=== PATIENT | male | born 1965 ===

== ENCOUNTER 2025-07-05 08:43 | Outpatient (AMB) | payer OTHER, SELFPAY ==
--- NOTE | 2025-07-05 08:46 | A.PHYSOV ---
Vital Signs 07/05/25 08:49 Height 5 ft 7 in Weight 315 lb BMI 49.3 Intake Visit Reasons: 4M FUV Intake Note: Patient is a 60 year old male here today for a 4 month follow up office visit. Patient is here to have bilateral knee injections today. 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 Allergies levofloxacin (From Levaquin) Allergy (Unknown, Verified 07/05/25 08:52) Unknown [facility] Surgical History History of back surgery Social History Alcohol intake: current Alcohol intake frequency: does not drink Patient Tobacco Use Status: Never used Tobacco Physical Exam Vital Signs: BMI result Body Mass Index 49.3 Office Procedures AMB Knee Injection AMB Knee Injection Procedure Details: Bilateral Knee injection: The risks, benefits and complications of the left knee injection were discussed with the patient including but not limited to increased serum glucose, infection, nerve pain, fat atrophy, pigment augmentation, bleeding and pain. All questions were answered to the patient's satisfaction. Verbal consent was obtained. The patient was eager to proceed. Using aseptic technique with Betadine, ethyl chloride was then used to desensitize the skin. Using a 22-gauge needle 40 mg of Kenalog and 3 mL 2% lidocaine were injected into the knee joint. A Band-Aid was applied. Patient tolerated the procedure well without immediate complication. Postinjection instructions were given. The procedure was repeated on the right. Knee Injection - : Bilateral All charges added?: Procedure code (CPT) selection complete Office Meds Kenalog 40 mg/mL suspension for injection Performing Provider: BO Knowles Performing Location: [facility] Administered by: BO Knowles on 07/05/25 09:11 Dose Route Admin Location Dispensed Lot Number Expiration Date [facility] Secondary Teacher 40 mg intra-articular 1 mL [address]-2 [employer] Total Dispensed Waste 1 mL 0 % lidocaine (PF) 20 mg/mL (2 %) injection solution Performing Provider: BO Knowles Performing Location: [facility] Administered by: BO Knowles on 07/05/25 09:11 Dose Route Admin Location Dispensed Lot Number Expiration Date [facility] Secondary Teacher 60 mg intra-articular 3 mL [id number] Total Dispensed Waste 3 mL 0 % Assessment & Plan Assessment & Plan (1) Bilateral primary osteoarthritis of knee: Code(s): M17.0 - Bilateral primary osteoarthritis of knee Category: Medical Plan Mr. Pineda is a 60-year-old male seen in evaluation today for bilateral knee osteoarthritis. Today consented to bilateral knee corticosteroid injection. Post-injection instructions, recommend: 15 minutes 5 times daily. Continue low-impact activities such walking, biking swimming. Follow-up with our office in 3 months as needed Thank you for allowing me to participate in the care of your patient. Orders: Orders AMB Knee Injection Today M17.0 - Bilateral primary osteoarthritis of knee Coding Level of Care Code Procedure Only Diagnoses Bilateral primary osteoarthritis of knee M17.0 CPT Codes AMB Knee Injection - Hip/Bursa Injection - : Bilateral ([id number])
[2025-07-05 08:49] VITALS: BMI 49.3
--- OUTSIDE RECORDS SUMMARY | 2025-07-05 09:00 | XMS_ITS | Encounter Summary ---
Author Organization [facility] Address [address] [place] [address] Care Team Providers Care Tailor Helper Name Role Phone Unknown Primary Care Provider [phone] Encounter Details Date Type Department Care Team (Late st Contact Info) Description 12/31/2024 Scanned Document [address] [place] [id number] Provider, Generic Social History Tobacco Use Types Packs/Day Years Used Date Smoking Tobacco: Never Assessed Sex and Gender Information Value Date Recorded Sex Assigned at Not on file Legal Sex Male 9:42 AM EDT Gender Identity Not on file Sexual Orientation Not on file documented as of this encounter Plan of Treatment Not on file documented as of this encounter Visit Diagnoses Not on filedocumented in this encounter Care Teams Tailor Helper Relationship Specialty Start Date End Date Unknown Unknow Provider Address PCP - General 06/11/22 documented as of this encounter
--- OUTSIDE RECORDS SUMMARY | 2025-07-05 09:00 | XMS_ITS | Data Portability ---
Author Organization [facility], Main Office Address [address] [facility] [address] [place] [address] Care Team Providers Care Transportation Economics Teacher Name Role Phone JOLIE MARY Urologist SURYA LUGO Primary Care Provider Assessment Encounter Date Assessment Date Assessment LastModified by Organization Details LastModified Time 01/20/2024 01/20/2024 Discussed with patient the signs/symptom s warranted for a return to office visit and/or an ER visit. Patient understood and agreed with the plan. Not available 01/20/2024 13:32:36 Plan of Treatment Reminders Order Date Submit Date Provider Last Modified By Organization Details Last Modified Time Details Appointments PE EST 2024 08:45A M SURYA LUGO MD Not available Not available Not available Lab None recorded. [facility] 2023 024 Obinna Singh MD, [address], [address], 01/24/2024 10:21:28 Procedures None recorded. Surgeries None recorded. Imaging None recorded. Medication Orders cetirizin e 10 mg tablet 2024 025 [facility] #[id number], [address], [place], [id number], 05/01/2025 11:42:07 Medrol (Mamadou) 4 mg tablets in a dose pack 2024 025 [facility] #[id number], [address], [place], [id number], 05/01/2025 11:42:45 allopurin ol 300 mg tablet 2023 024 [facility] #66369, [address], [place], [id number], 08/09/2024 09:31:09 gabapenti n 100 mg capsule 2023 024 [facility] #88290, [address], [place], [id number], 08/09/2024 09:28:25 hydrochlo rothiazid e 25 mg tablet [address] [facility]30965, [address], [place], [id number], 12/15/2023 15:17:46 amlodipin e 10 mg tablet 2023 024 [facility]36486, [address], [place], [id number], 12/15/2023 15:17:45 allopurin ol 300 mg tablet 2023 024 [facility]02238, [address], [place], [id number], 12/15/2023 15:17:02 Patient TargetsNo targets recorded. Patient Instructions Encounter Date Encounter Id Patient Instructions Last Modified By Organization Details Last Modified Time 12/15/2023 [id number] Prediabetes: Instruciones de cuidado - [Prediabetes: Care Instructions] [facility] available 12/15/2023 15:27:40 Aprenda sobre el recuento de carbohidratos y comer afuera cuando tiene diabetes - [Learning About Carbohydrate (Carb) Counting and Eating Out When You Have Diabetes] [facility] Not available 12/15/2023 15:29:11 C MO comer alimentos saludables: instrucciones de cuidado - [eating healthy foods: care instructions] [facility] Not available 12/15/2023 15:29:11 alimentaci n saludable para el coraz n: instrucciones de cuidado - [heart-healthy diet: care instructions] jthabet Not available 12/15/2023 15:29:11 presi n arterial lin: instrucciones de cuidado - [high blood pressure: care instructions] jthabet Not available 12/15/2023 15:18:21 dieta dash: instrucciones de cuidado - [dash diet: care instructions] jabet Not available 12/15/2023 15:18:21 dieta baja en sodio (2,000 miligramos): instrucciones de cuidado - [low sodium diet (2,000 milligram): care instructions] jt Not available 12/15/2023 15:18:22 aprenda sobre la dieta para prevenir los c lculos renales - [learning about diet for kidney stone prevention] jt Not available 12/15/2023 15:18:40 To call or retur n for worsening or concerns t Not available 12/15/2023 15:17:50 01/20/2024 [id number] ci robin: instrucciones de cuidado - [sciatica: care instructions] Not available 01/20/2024 13:37:42 sciatica: exercises Not available 01/20/2024 13:37:42 sciatica education Not available 01/20/2024 13:37:42 05/01/2024 [id number] Starting a Weight-Loss Plan: Care Instructions abet Not available 05/01/2024 15:56:43 Prostate Cancer Screening jthabet Not available 05/01/2024 15:56:42 low back pain: exercises jthabet Not available 05/01/2024 15:56:42 back care and preventing injuries: care instructions jabet Not available 05/01/2024 15:56:43 Colon Cancer Screening VMA jthabet Not available 05/01/2024 16:00:06 controlling your asthma: care instructions jthabet Not available 05/01/2024 15:56:42 control del asma : instrucciones de cuidado - [controlling your asthma: care instructions] jthabet Not available 05/01/2024 15:56:42 ataque de asma: instrucciones de cuidado - [asthma attack: care instructions] jthabet Not available 05/01/2024 15:56:42 To call or retur n for worsening or concerns jthabet Not available 05/01/2024 12:40:20 08/09/2024 [id number] high blood pressure: care instructions jthabet Not available 08/09/2024 09:31:22 low sodium diet (2,000 milligram): care instructions jthabet Not available 08/09/2024 09:31:22 dash diet: care instructions jthabet Not available 08/09/2024 09:31:22 kidney stone: care instructions jthabet Not available 08/09/2024 09:33:50 To call or retur n for worsening or concerns jthabet Not available 08/09/2024 10:48:36 05/01/2025 [id number] urticaria: instrucciones de cuidado - [hives: care instructions] acennerazzo Not available 05/01/2025 11:42:03 Reason for Referral Physical Medicine And Rehabi litation Referral for Sciatica bilateral sciatica Referring Physician: Xiomara Pascual, Family Medicine, Encounter Date: 01/20/2024 Results Created Date Observation Date Name Description Value Unit Range Abnormal Flag Note LastModifiedBy Organization Detail LastModifiedTime 05/31/20 24 05/31/2024 CBC WITH DIFFE RENTI AL/PL ATELE T WBC 8.3 x10e3 /uL 3.4-10 .8 normal Not Available [facility] [place] [facility] [address] [facility], [place], [address], 06/08/2024 11:59:44 05/31/20 24 05/31/2024 CBC WITH DIFFE RENTI AL/PL ATELE T RBC 4.79 x10e6 /uL 4.14-5 .80 normal Not Available [facility] ([facility] [address] [place], [address], 06/08/2024 11:59:44 05/31/2005/31/2024 CBC WITH DIFFE RENTI AL/PL ATELE T hemoglobin 14.6 g/dL 13.0-1 7.7 normal Not Available [facility] ([facility] [place] [facility] [address] [place], [address], 06/08/2024 11:59:44 05/31/2005/31/2024 CBC WITH DIFFE RENTI AL/PL ATELE T hematocrit 43.4 % 37.5-5 1.0 normal Not Available [facility] ([facility] [place] [facility] [address] [place], [address], 06/08/2024 11:59:44 05/31/2005/31/2024 CBC WITH DIFFE RENTI AL/PL ATELE T MCV 91 fL 79-97 normal Not Available [facility] ([facility] [place] [facility] [address] [place], [address], 06/08/2024 11:59:44 05/31/2005/31/2024 CBC WITH DIFFE RENTI AL/PL ATELE T MCH 30.5 pg 26.6-3 3.0 normal Not Available [facility] ([facility] [place] [facility] [address] [place], [address], 06/08/2024 11:59:44 05/31/2005/31/2024 CBC WITH DIFFE RENTI AL/PL ATELE T MCHC 33.6 g/dL 31.5-3 5.7 normal Not Available [facility] ([facility] [place] [facility] [address] [place], [address], 06/08/2024 11:59:44 05/31/2005/31/2024 CBC WITH DIFFE RENTI AL/PL ATELE T RDW 13.1 % 11.6-1 5.4 Not Available [facility] ([facility] [place] [place] [facility] [address] [facility], [place], [address], 06/08/2024 11:59:44 05/31/20 24 05/31/2024 CBC WITH DIFFE RENTI AL/PL ATELE T platelets 298 x10e3 /uL 150-45 0 normal Not Available [facility] ([facility] [place] [facility] [address] [facility], [place], [address], 06/08/2024 11:59:44 05/31/2005/31/2024 CBC WITH DIFFE RENTI AL/PL ATELE T neutrophils 69 % not estab. normal Not Available [facility] ([facility] [place] [place] [facility] [address] [facility], [place], [address], 06/08/2024 11:59:44 05/31/2005/31/2024 CBC WITH DIFFE RENTI AL/PL ATELE T lymphs 20 % not estab. normal Not Available [facility] ([facility] [place] [place] [facility] [address] [facility], [place], [address], 06/08/2024 11:59:44 05/31/20 24 05/31/2024 CBC WITH DIFFE RENTI AL/PL ATELE T monocytes 6 % not estab. normal Not Available [facility] ([facility] [place] [place] [facility] [address] [facility], [place], [address], 06/08/2024 11:59:44 05/31/2005/31/2024 CBC WITH DIFFE RENTI AL/PL ATELE T eos 3 % not estab. normal Not Available [facility] ([facility] [place] [place] [facility] [address] [facility], [place], [address], 06/08/2024 11:59:44 05/31/20 24 05/31/2024 CBC WITH DIFFE RENTI AL/PL ATELE T basos 1 % not estab. normal Not Available [facility] ([facility] [place] [place] [facility] [address] [facility], [place], [address], 06/08/2024 11:59:44 05/31/2005/31/2024 CBC WITH DIFFE RENTI AL/PL ATELE T immature cells TETRYL NITRATOR OPERATOR Not Available [facility] ([facility] [place] [place] [facility] [address] [facility], [place], [address], 06/08/2024 11:59:44 05/31/2005/31/2024 CBC WITH DIFFE RENTI AL/PL ATELE T neutrophils (absolute) 5.9 x10e3 /uL 1.4-7. 0 normal Not Available [facility] ([facility] [place] [place] [facility] [address] [facility], [place], [address], 06/08/2024 11:59:44 05/31/20 24 05/31/2024 CBC WITH DIFFE RENTI AL/PL ATELE T lymphs (absolute) 1.7 x10e3 /uL 0.7-3. 1 normal Not Available [facility] ([facility] [place] [place] [facility] [address] [place], [address], 06/08/2024 11:59:44 05/31/20 24 05/31/2024 CBC WITH DIFFE RENTI AL/PL ATELE T monocytes(ab solute) 0.5 x10e3 /uL 0.1-0. 9 normal Not Available [facility] ([facility] [place] [place] [facility] [address] [facility], [place], [address], 06/08/2024 11:59:44 05/31/20 24 05/31/2024 CBC WITH DIFFE RENTI AL/PL ATELE T eos (absolute) 0.2 x10e3 /uL 0.0-0. 4 normal Not Available [facility] ([facility] [place] [place] [facility] [address] [facility], [place], [address], 06/08/2024 11:59:44 05/31/20 24 05/31/2024 CBC WITH DIFFE RENTI AL/PL ATELE T baso (absolute) 0.1 x10e3 /uL 0.0-0. 2 normal Not Available [facility] ([facility] [place] [place] [facility] [address] [facility], [place], [address], 06/08/2024 11:59:44 05/31/20 24 05/31/2024 CBC WITH DIFFE RENTI AL/PL ATELE T immature granulocytes 1 % not estab. Not Available [facility] ([facility] [place] [place] [facility] [address] [facility], [place], [address], 06/08/2024 11:59:44 05/31/2005/31/2024 CBC WITH DIFFE RENTI AL/PL ATELE T immature grans (abs) 0.1 x10e3 /uL 0.0-0. 1 Not Available [facility] ([facility] [place] [place] [facility] [address] [facility], [place], [address], 06/08/2024 11:59:44 05/31/20 24 05/31/2024 CBC WITH DIFFE RENTI AL/PL ATELE T NRBC TETRYL NITRATOR OPERATOR Not Available [facility] ([facility] [place] [place] [facility] [address] [facility], [place], [address], 06/08/2024 11:59:44 05/31/20 24 05/31/2024 CBC WITH DIFFE RENTI AL/PL ATELE T hematology comments: TETRYL NITRATOR OPERATOR Not Available [facility] ([facility] [place] [place] [facility] [address] [facility], [place], [address], 06/08/2024 11:59:44 05/31/20 24 05/31/2024 COMP. METAB OLIC PANEL (14) glucose 95 mg/dL 70-99 normal Not Available [facility] ([facility] [place] [facility] [address] [place], [address], 06/08/2024 11:59:45 05/31/20 24 05/31/2024 COMP. METAB OLIC PANEL (14) BUN 18 mg/dL 6-24 normal Not Available [facility] ([facility] [place] [place] [facility] [address] [facility], [place], [address], 06/08/2024 11:59:45 05/31/20 24 05/31/2024 COMP. METAB OLIC PANEL (14) creatinine 1.16 mg/dL 0.76-1 .27 normal Not Available [facility] ([facility] [place] [facility] [address] [facility], [place], [address], 06/08/2024 11:59:45 05/31/20 24 05/31/2024 COMP. METAB OLIC PANEL (14) eGFR 73 mL/mi n/1.7 3 >59 normal Not Available [facility] ([facility] [place] [place] [facility] [address] [facility], [place], [address], 06/08/2024 11:59:45 05/31/20 24 05/31/2024 COMP. METAB OLIC PANEL (14) BUN/creatini ne ratio 16 9-20 normal Not Available [facility] ([facility] [place] [place] [facility] [address] [facility], [place], [address], 06/08/2024 11:59:45 05/31/20 24 05/31/2024 COMP. METAB OLIC PANEL (14) sodium 143 mmol/ L 134-14 4 normal Not Available [facility] ([facility] [place] [place] [facility] [address] [place] [place], [address], 06/08/2024 11:59:45 05/31/20 24 05/31/2024 COMP. METAB OLIC PANEL (14) potassium 4.5 mmol/ L 3.5-5. 2 normal Not Available [facility] ([facility] [place] [place] [facility] [address] [place] [place], [address], 06/08/2024 11:59:45 05/31/20 24 05/31/2024 COMP. METAB OLIC PANEL (14) chloride 104 mmol/ L 96-106 normal Not Available [facility] ([facility] [place] [place] [facility] [address] [place] [place], [address], 06/08/2024 11:59:45 05/31/20 24 05/31/2024 COMP. METAB OLIC PANEL (14) carbon dioxide, total 25 mmol/ L 20-29 normal Not Available [facility] ([facility] [place] [place] [facility] [address] [facility] [place], [address], 06/08/2024 11:59:45 05/31/20 24 05/31/2024 COMP. METAB OLIC PANEL (14) calcium 9.6 mg/dL 8.7-10 .2 normal Not Available [facility] ([facility] [place] [facility] [address] [place], [address], 06/08/2024 11:59:45 05/31/2005/31/2024 COMP. METAB OLIC PANEL (14) protein, total 6.9 g/dL 6.0-8. 5 normal Not Available [facility] ([facility] [place] [place] [facility] [address] [place] [place], [address], 06/08/2024 11:59:45 05/31/20 24 05/31/2024 COMP. METAB OLIC PANEL (14) albumin 4.0 g/dL 3.8-4. 9 normal Not Available [facility] ([facility] [place] [place] [facility] [address] [place] [place], [address], 06/08/2024 11:59:45 05/31/20 24 05/31/2024 COMP. METAB OLIC PANEL (14) globulin, total 2.9 g/dL 1.5-4. 5 Not Available [facility] ([facility] [place] [place] [facility] [address] [place] [place], [address], 06/08/2024 11:59:45 05/31/2005/31/2024 COMP. METAB OLIC PANEL (14) bilirubin, total 0.7 mg/dL 0.0-1. 2 normal Not Available [facility] ([facility] [place] [place] [facility] [address] [place], [address], 06/08/2024 11:59:45 05/31/20 24 05/31/2024 COMP. METAB OLIC PANEL (14) alkaline phosphatase 69 IU/L 44-121 normal Not Available [facility] ([facility] [place] [place] [facility] [address] [place] [place], [address], 06/08/2024 11:59:45 05/31/20 24 05/31/2024 COMP. METAB OLIC PANEL (14) AST (SGOT) 19 IU/L 0-40 normal Not Available [facility] ([facility] [place] [place] [facility] [address] [place], [address], 06/08/2024 11:59:45 05/31/2005/31/2024 COMP. METAB OLIC PANEL (14) ALT (SGPT) 27 IU/L 0-44 normal Not Available [facility] ([facility] [place] [facility] [address] [place], [address], 06/08/2024 11:59:45 05/31/20 24 05/31/2024 LIPID PANEL cholesterol, total 186 mg/dL 100-19 9 normal Not Available [facility] ([facility] [place] [place] [facility] [address] [place], [address], 06/08/2024 11:59:45 05/31/20 24 05/31/2024 LIPID PANEL triglyceride s 100 mg/dL 0-149 normal Not Available [facility] ([facility] [place] [facility] [address] [place], [address], 06/08/2024 11:59:45 05/31/20 24 05/31/2024 LIPID PANEL HDL cholesterol 46 mg/dL >39 normal Not Available [facility] ([facility] [place] [facility] [address] [place], [address], 06/08/2024 11:59:45 05/31/20 24 05/31/2024 LIPID PANEL VLDL cholesterol marianela 18 mg/dL 5-40 Not Available [facility] ([facility] [place] [facility]) [address] [place], [address], 06/08/2024 11:59:45 05/31/2005/31/2024 LIPID PANEL LDL chol calc ([facility]) 122 mg/dL 0-99 above high normal Not Available [facility] ([facility] [place] [place] [facility] [address] [facility], [place], [address], 06/08/2024 11:59:45 05/31/2005/31/2024 LIPID PANEL LDL calc comment: TETRYL NITRATOR OPERATOR Not Available [facility] ([facility] [place] [place] [facility] [address] [facility], [place], [address], 06/08/2024 11:59:45 05/31/2006/08/2024 PROST ATE SPECI FIC ANTIG EN prostate specific antigen 2.367 NG/mL This PSA resul t was deter mined using the [employer] an [employer] lumin ometr ic immun oassa y and value s obtai adrienne canno t be evalu ated inter giang eably with diffe rent assay metho ds or kits. This PSA resul t alone canno t be inter prete d as absol qagan tayagungin evide nce of the prese nce or absen ce of disea se. Refer ence Range : >=40y : 97% of contr ols are <4.0. PSA level s have been repor rudy to corre late with prost ate size. Value s >4.0 are commo n in patie nts with prost atic hyper plasi a. Not Available [facility] [address] [facility], [place], [address], 06/08/2024 11:59:46 05/31/20 24 06/01/2024 HEMOG LOBIN A1C hemoglobin A1C 6.2 % 4.8-5. 6 above high normal Predi abete s: 5.7 - 6.4 Diabe leigh ann: >6.4 Glyce adalid contr ol for adult s with diabe leigh ann: <7.0 Not Available [facility] ([facility] [place] [facility] [address] [facility], [place], [address], 06/08/2024 11:59:47 09/17/19 25 09/17/2024 STONE DEBORAH SIS component(s) See below 20% Calci um oxala te monoh ydrat e (Whew ellit e) 40% Uric acid anhyd sean 40% Uric acid dihyd rate Not Available [address], [address], 09/20/2024 14:26:20 09/17/19 25 09/17/2024 STONE DEBORAH SIS stone weight 0.1977 g This test was devel oped and its perfo rmanc e monica cteri stics deter mined by [facility] in a phani r consi stent with KAM russo ts. This test has not been clear ed or appro stella by the U.S. Food and Drug Admin istra tion. Test perfo rmed at [facility] , [address], [place] [address] [phone] Catherine spence MD, PhD - Medic al Direc tor Not Available [address], [address], 09/20/2024 14:26:20 09/17/19 25 09/17/2024 STONE DEBORAH SIS note See Report [facility], [address], [place], [place] [address] Not Available [address], [address], 09/20/2024 14:26:20 09/17/19 25 09/17/2024 xr urogr am retro grade See Note [facility] , a member of [employer] Name: SHELDON ABRAHAM Date of : 1964 Reason for Exam: pain Exam Date: 2024 [id number] EST Report Status : Final Orderi ng Provid er: BRIEN ARZATE PCP: MARCELINO LEE EXAMIN ATION: Imagin g assist ance provid ed during a proced ure CLINIC AL INFORM ATION: Pain COMPAR PEACE: None. TECHNI QUE: UROLOG IC-Silva ging assist ance was provid ed during a urolog ic proced ure Total dose area produc t: 9304 mGycm2 Fluoro scopy time: 51.5 second s FINDIN GS: Images are not labele d left or right. There are densit ies projec ting in the midabd omen which could be calcul i. A wire is demons trated superi mposin g over the region of the upper pole collec ting system . A fairly large bore cannul a is advanc ed into the expect ed region of the proxim al ureter . Subseq uently a device is manipu lated into variou s portio ns of the intrar enal collec ting system . Contra st is introd uced. Subseq uently a nephro ureter al stent was deploy ed. IMPRES MICHELA: Imagin g assist ance provid ed during a urolog ic proced ure. ------ -- FINAL REPORT ------ -- Dictat ed By: Davonte Ng Dictat ed Date: 2024 12:13 ET Assign ed Physic luis antonio: Davonte Ng Review ed and Electr onical ly Signed By: Davonte Ng Signed Date: 2024 12:15 ET Workst ation ID: [id number] Transc ribed By: Self Edit Transc ribed Date: 2024 12:[address], [address], 09/18/2024 06:55:31 Result Notes None recorded. Problems Name Problem SNOMED Code Status Onset Date Resolution Date Notes Provider Name and Address Organization Details Recorded Time Uric acid renal calculus 066563474 Active on allopurin ol for this Marley De Santiagoashleyandressa stephany smiley [facility] 3 09:35:18 [facility] emia 32461874 Active JENY Brown [facility] 3 15:54:11 Essential hypertens ion 52479770 Active 2021 JENY Brown [facility] 2 11:12:10 Generaliz ed anxiety disorder 63413963 Active 2021 [facility] 11:43:51 Acute pharyngit is 832243455 Active 2021 Mariaelena Lee PASLEIDY [address] [address], [place], [address], [facility] 2 11:11:15 Influenza A virus present 380218239832 Active 2021 BIJAL San [address] [address], [place], [address], [facility] 2 11:48:04 Cough 93840920 Active 2021 BIJAL San [address] [address], [place], [address], [facility] 2 11:49:25 Body mass index 40+ - severely obese 427078590 Active 2022 BIJAL San [address] [address], [place], [address], [facility] 3 08:48:16 Body mass index 40+ - severely obese 329052122 Active 2022 BIJAL San [address] [address], [place], [address], [facility] 3 08:48:25 Low back pain 596284932 Active 2022 Mariaelena Lee PASLEIDY [address] [address], [place], [address], [facility] 3 09:00:06 Moderate persisten t asthma 255960168 Active 2022 Mariaelena Lee PASLEIDY [address] [address], [place], [address], [facility] 3 10:47:31 Hyperlipi demia 24253672 Active 2022 Mariaelena Lee, [facility] [address] [facility] [address], [place], [address], [facility] 3 08:58:00 Nocturia 230529326 Active 2022 Mariaelena Lee, [facility] [address] [facility] [address], [place], [address], [facility] 3 09:07:22 Exacerbat ion of moderate persisten t asthma 786225160 Active 2023 Mariaelena Lee, [facility] [address] [facility] [address], [place], [address], [facility] 4 10:36:03 Prediabet es 470613959 Active 2023 Mariaelena Lee, [facility] [address] [facility] [address], [place], [address], [facility] 4 15:27:23 Problem Notes None recorded. Procedures Surgical History Date Name Laterality Status Provider Name and Address Organization Details Recorded Time 5 injection of bilateral knee joints completed Eve Quinonez [facility] 03/19/2025 10:53:51 4 injection of bilateral knee joints completed Eve Quinonez [facility] 06/28/2024 10:58:51 4 Back Surgery completed Rosalinda moreno MA [facility] 12/15/2023 15:02:55 Kidney endoscopy & treatment completed Niki Conrad MA [facility] 05/17/2022 11:17:46 Imaging Results None recorded. Procedure Notes None recorded. Medical Equipment None Reported. Allergies Allergen ID Allergen Name Allergen Category Reaction Reaction Severity Criticality Documentation Date Start Date Code Code System Note Provider Name and Address Organization Details Recorded Time 56945 Levaquin medicatio n anaphylax is severe Not available 05/17/2022 55186 2 RxNorm Niki Conrad MA [facility] 11:06:53 Medications Name Sig Start Date Stop Date Status Note LastModified by Organization Details LastModified Time cyclobenz aprine 10 mg tablet TAKE 1 TABLET BY MOUTH ONCE DAILY AT BEDTIME FOR MUSCLE SPASMS. DO NOT DRINK ALCOHOL OR DRIVE WHILE TAKING THIS MEDICATI ON 01/19 completed Not Available Not Available Not Available amoxicill in 500 mg capsule TAKE 1 CAPSULE BY MOUTH THREE TIMES DAILY 05/01 completed Not Available Not Available Not Available promethaz ine-DM 6.25 mg-15 mg/5 mL oral syrup TAKE 5 ML BY MOUTH EVERY 4 HOURS FOR 7 DAYS DIRECTED 09/22 completed Not Available Not Available Not Available prednison e 10 mg tablet Take 5 tabs, 3 days, 4 tabs x 3 days, 3 tabs x 3 days, 2 tabs x 2 days and 1 tab x 2 days 01/19 completed Not Available Not Available Not Available cetirizin e 10 mg tablet TAKE 1 TABLET BY MOUTH DAILY FOR HIVES active Not Available Not Available No t Available azithromy akil 250 mg tablet TAKE 2 TABLETS BY MOUTH DAILY FOR 1 DAY THEN TAKE 1 TABLET BY MOUTH DAILY FOR 4 DAYS active Not Available Not Available No t Available ibuprofen 800 mg tablet TAKE 1 TABLET BY MOUTH THREE TIMES DAILY NEEDED FOR BACK PAIN active Not Available Not Available No t Available Lidocaine Viscous 2 % mucosal solution active Not Available Not Available Not Available tizanidin e 4 mg tablet TAKE 1 TABLET BY MOUTH THREE TIMES DAILY 08/09 completed Not Available Not Available Not Available benzonata te 200 mg capsule 02/16 completed Not Available Not Available Not Available hydrocodo ne 5 mg-acetam inophen 325 mg tablet TAKE 1 TABLET BY MOUTH THREE TIMES DAILY FOR 5 DAYS NEEDED 08/09 completed Not Available Not Available Not Available meloxicam 15 mg tablet TAKE 1 TABLET BY MOUTH EVERY DAY NEEDED THROAT PAIN 2024 active Not Available Not Available Not Avai lable phenazopy ridine 200 mg tablet TAKE 1 TABLET BY MOUTH EVERY 8 HOURS NEEDED active Not Available Not Available No t Available prednison e 20 mg tablet TAKE 3 TABLETS BY MOUTH EVERY DAY IN THE MORNING FOR 5 DAYS 12/14 completed Not Available Not Available Not Available amlodipin e 5 mg tablet TAKE 1 TABLET BY MOUTH EVERY DAY 03/18 completed Not Available Not Available Not Available sulfameth oxazole 800 mg-trimet hoprim 160 mg tablet TAKE 1 TABLET BY MOUTH TWICE DAILY 05/01 completed Not Available Not Available Not Available oxycodone -acetamin ophen 5 mg-325 mg tablet TAKE 1 TABLET BY MOUTH EVERY 6 HOURS NEEDED 05/01 completed Not Available Not Available Not Available tamsulosi n 0.4 mg capsule TAKE 1 CAPSULE BY MOUTH EVERY 24 HOURS 05/17 completed Not Available Not Available Not Available amlodipin e 10 mg tablet TAKE 1 TABLET BY MOUTH EVERY DAY active Not Available Not Available No t Available erythromy akil 5 mg/gram (0.5 %) eye ointment APPLY TO RIGHT LOWER LID AND LEFT UPPER LID FOUR TIMES A DAY FOR 7 DAYS 05/17 completed Not Available Not Available Not Available oseltamiv ir 75 mg capsule Take 1 capsule twice a day by oral route as directed for 5 days. 2021 active Not Available Not Available Not Avai lable dexametha sone 4 mg tablet 08/09 completed Not Available Not Available Not Available omeprazol e 20 mg capsule,d elayed release TAKE 1 CAPSULE BY MOUTH EVERY DAY IN THE MORNING FOR GERD 05/01 completed Not Available Not Available Not Available lisinopri l 20 mg-hydroc hlorothia zide 25 mg tablet TAKE 1 TABLET BY MOUTH EVERY DAY 05/17 completed Not Available Not Available Not Available allopurin ol 300 mg tablet TAKE 1 TABLET BY MOUTH EVERY DAY DIRECTED FOR KIDNEY STONES active Not Available Not Available No t Available hydrochlo rothiazid e 25 mg tablet TAKE 1 TABLET BY MOUTH EVERY DAY active Not Available Not Available No t Available gabapenti n 100 mg capsule TAKE 1 CAPSULE BY MOUTH TWICE DAILY NEEDED 08/09 completed Not Available Not Available Not Available ibuprofen 600 mg tablet 05/17 completed Not Available Not Available Not Available methylpre dnisolone 4 mg tablets in a dose pack FOLLOW PACKAGE DIRECTIO NS active Not Available Not Available No t Available albuterol sulfate HFA 90 mcg/actua tion aerosol inhaler INHALE 2 PUFFS BY MOUTH EVERY 4 HOURS NEEDED active Not Available Not Available No t Available lisinopri l 40 mg tablet TAKE 1 TABLET BY MOUTH EVERY DAY active Not Available Not Available No t Available ondansetr on 4 mg disintegr ating tablet TAKE 1 TABLET BY MOUTH EVERY 8 HOURS NEEDED FOR NAUSEA AND VOMITTIN G 05/17 completed Not Available Not Available Not Available fluticaso ne propionat e 50 mcg/actua tion nasal spray,frankie pension SPRAY 1 SPRAY INTO EACH NOSTRIL EVERY DAY 02/16 completed Not Available Not Available Not Available doxycycli ne hyclate 100 mg tablet TAKE 1 TABLET BY MOUTH TWICE DAILY FOR 7 DAYS 07/12 completed Not Available Not Available Not Available fluticaso ne propionat e 110 mcg/actua tion HFA aerosol inhaler Inhale 2 puffs twice a day by inhalati on route for 30 days. 12/29 completed has not started too expensiv e Not Available Not Available Not Available amoxicill in 875 mg-potass ium clavulana te 125 mg tablet TAKE 1 TABLET BY MOUTH TWICE DAILY FOR 5 DAYS active Not Available Not Available No t Available cyclobenz aprine 5 mg tablet TAKE 1 TABLET BY MOUTH THREE TIMES DAILY NEEDED FOR MUSCLE SPASM 09/22 completed Not Available Not Available Not Available budesonid e-formote rol HFA 160 mcg-4.5 mcg/actua tion aerosol inhaler INHALE 2 PUFFS BY MOUTH TWICE DAILY DIRECTED active Not Available Not Available No t Available ProChambe r 02/16 completed Not Available Not Available Not Available COVID-19 test specimen collectio n TEST DIRECTED TODAY 05/17 completed Not Available Not Available Not Available Wegovy 0.25 mg/0.5 mL subcutane ous pen injector 02/16 completed Not Available Not Available Not Available Wegovy 0.5 mg/0.5 mL subcutane ous pen injector 02/16 completed Not Available Not Available Not Available Vitals Date Recorded Systolic And Diastolic Provider Name and Address Organization Details Last Updated DateTime 12/15/2023 124/80 mm[Hg] Mariaelena Lee, BIJAL [address] [facility] [address], [address], [facility] 12/15/2023 15:30:30 Date Recorded Body height Body mass index (BMI) Body weight Oxygen saturation Oxygen saturation in Arterial blood by Pulse oximetry Heart rate Body temperature Systolic And Diastolic Provider Name and Address Organization Details Last Updated DateTime 4 170.18 cm 51.4 kg/m2 574186. 3 g 96 % 96 % 98 /min 98 [degF] 139/79 mm[Hg] Rosalinda aviles [facility] 4 14:57:54 Date Recorded Body height Body mass index (BMI) Body weight Heart rate Oxygen saturation Oxygen saturation in Arterial blood by Pulse oximetry Body temperature Systolic And Diastolic Provider Name and Address Organization Details Last Updated DateTime 4 170.18 cm 51.4 kg/m2 526133. 3 g 100 /min 97 % 97 % 97.7 [degF] 123/76 mm[Hg] Gabbi [facility] 4 13:26:45 Date Recorded Body height Body mass index (BMI) Body weight Heart rate Oxygen saturation Oxygen saturation in Arterial blood by Pulse oximetry Body temperature Systolic And Diastolic Provider Name and Address Organization Details Last Updated DateTime 4 170.18 cm 49 kg/m2 182860. 41 g 97 /min 94 % 94 % 97.8 [degF] 160/98 mm[Hg] Adalgisa Isaac [facility] 4 15:37:30 Date Recorded Body height Body mass index (BMI) Body weight Heart rate Oxygen saturation Oxygen saturation in Arterial blood by Pulse oximetry Heart rate Body temperature Systolic And Diastolic Provider Name and Address Organization Details Last Updated DateTime 5 170.18 cm 48.6 kg/m2 794998. 63 g 124 /min 97 % 97 % 112 /min 97.9 [degF] 116/70 mm[Hg] Gabbi Boykin [facility] 5 11:20:59 Date Recorded Body height Body mass index (BMI) Body weight Heart rate Oxygen saturation Oxygen saturation in Arterial blood by Pulse oximetry Body temperature Systolic And Diastolic Provider Name and Address Organization Details Last Updated DateTime 4 170.18 cm 50.1 kg/m2 948977. 56 g 80 /min 97 % 97 % 97.6 [degF] 133/84 mm[Hg] Gabbi Connolly MA [facility] 4 08:53:37 Social History Question Answer Notes LastModified by Organizat ion Details LastModified Time Tobacco Smoking Status Former Smoker quit at age 37 JENY Brown, [facility] 05/17/2022 11:15:32 Is Blood Transfusion Acceptable In An Emergency? Yes [email or web address] Information not available 05/17/2022 What Is Your Level Of Caffeine Consumption? Moderate 3-4 Cups Of Coffee Daily Information not available 12/15/2023 How Much Tobacco Do You Chew? None [email or web address] Information not available 05/17/2022 What Type Of Diet Are You Following? REGULAR [email or web address] Information not available 05/17/2022 Which Illicit Or Recreational Drugs Have You Used? None [email or web address] Information not available 05/17/2022 When Did You Quit Smoking? 16+yearssin mary tovar Information not available 12/15/2023 Do You Take Precautions To Prevent Distracted Driving? Yes [email or web address] Information not available 05/17/2022 How Often Do You Need To Have Someone Help You When You Read Instructions, Pamphlets, Or Other Written Material From Your Doctor Or Pharmacy? Always [email or web address] Information not available 05/17/2022 Have You Served In The ? No [email or web address] Information not available 05/17/2022 How Many Children Do You Have? 1 [email or web address] Information not available 12/15/2023 What Is Your Current Pack Years? 10packyears Information not available 07/29/2022 Do You Use Your Seat Belt Or Car Seat Routinely? Yes [email or web address] Information not available 05/17/2022 Are You Sexually Active? Yes Rowena Information not available 12/15/2023 Do You Have Smoke And Carbon Monoxide Detectors In Your Home? Yes [email or web address] Information not available 05/17/2022 At What Age Did You Start Smoking Tobacco? 20 [email or web address] Information not available 05/17/2022 Are You Passively Exposed To Smoke? No [email or web address] Information not available 05/17/2022 How Much Tobacco Do You Smoke? No [email or web address] Information not available 05/17/2022 Do You Use Sunscreen Routinely? No [email or web address] Information not available 05/17/2022 How Many Years Have You Smoked Tobacco? 16 Information not available 12/15/2023 Sex: Unknown Functional Status Question Answer Note LastModified by Organizat ion Details LastModified Time Do you use any illicit or recreational drugs? No Information not available 07/29/2022 Do you or have you ever used any other forms of tobacco or nicotine? No Information not available 07/29/2022 What is your level of alcohol consumption? Occasional [email or web address] Information not available 05/17/2022 Do you or have you ever used smokeless tobacco? Never used smokeless tobacco [email or web address] Information not available 05/17/2022 Are you currently employed? Yes [email or web address] Information not available 05/17/2022 Are you able to walk independently without assistance or assistive devices? YESWOREST Information not available 07/29/2022 Are you able to care for yourself independently? 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 None [email or web address] Information not available 05/17/2022 Mental Status None recorded. Family History Relationship Description Onset Age of this Age Resolved Age Notes LastModified by Organization Details LastModified Time Mother Heart disease [email or web address] Not available 05/17 11:13:52 Mother Cerebrovascu lar accident [email or web address] Not available 11:14:06 Father Harmful pattern of use of alcohol [email or web address] Not available 05/17 11:14:39 Notes:NO Colon or breast can cer Medical History Condition Response Hospitalizations Y Allergies Y Immunizations Vaccine Type Date Status Note Provider Name and Address Organization Details Recorded Time Tdap completed Niki Conrad MA [facility] 06/21/2022 15:55:48 COVID-19, mRNA, LNP-S, PF, 100 mcg/0.5mL dose or 50 mcg/0.25mL dose 1 completed JENY Brown [facility] 06/21/2022 15:55:48 COVID-19, mRNA, LNP-S, PF, 100 mcg/0.5mL dose or 50 mcg/0.25mL dose 1 completed JENY Brown [facility] 06/21/2022 15:55:48 Influenza, split virus, quadrivalent , PF 2 cancelled patient objection Brandi Stacynehemiah smiley [facility] 05/19/2022 11:43:00 Past Encounters Encounter ID Performer Location Encounter Start Date Encounter Closed Date Diagnosis/Indication Diagnosis SNOMED-CT Code Diagnosis ICD10 Code Diagnosis IMO Codes Diagnosis Note [id number] Selina moseley MD Main Office [address] [place] [address] 05/17/2022 10:33:10 05/17/2022 12:15:00 Adult health examination 882420862 Z00.00 Pt had new pt visit and physical, needs follow up on several concerns. . Social and family history reviewed. Immunizati ons reviewed, advised annual flu shot, covid vaccine and shingles vaccine. He is not up to date on dental and eye providers, colon screening will need to be scheduled, Reviewed diet and exercise. He will do labs, take meds and return for followup and to complete the physical Needs infl uenza immunization 969759436 Z23 Fatigue 39148715 R53.83 Hyperlipidemia 14429654 E78.5 labs and will review at next visit Hyperglycemia 76238540 R 73.9 do labs and needs followup to review Low back pain 144245584 M54.59 pt pain concern is back pain, needs to see [facility] for evaluation and plan of care for PT and need for any imaging. Essential hypertension 36559568 I10 pt not taking meds regularly, discussed taking daily and short term re evaluation of blood pressure. Needs to exercsise as able and work on improving diet. Uric acid renal calculus 098367529 N20.0 follows with urology Generalize d anxiety disorder 72316591 F41.1 pt admits to this, suggested counseling and will explore medication treatment at next visit. Major depr essive disorder 674563390 F32.A see above on anxiety, no HI or SI [id number] Selina moseley MD Main Office [address] [place] [address] 06/21/2022 15:34:45 06/21/2022 16:55:56 Essential hypertension 30122861 I10 BP is controlled on present regimen, continue all meds at current dosages. Continue with low salt diet, exercise, needs to work on wt loss Generalize d anxiety disorder 11034788 F41.1 pt admits to this, suggested counseling and will explore medication treatment at next visit. Denies HI or SI, just life stressors, will look in to EAP program Body mass index 40+ - severely obese 176132920 E66.01 Z68.41 Needs to address weight, suggested portion control, more exercise. Consider bariatric appt if not able to lose by the next reg visit. Prediabetes 937668795 R7 3.03 hgba1c 6.2%, no prior available to compare. For now will work on diet and exercise, aware of diagnosis. Would consider metformin if not improved in 2-3 mos. [id number] Selina moseley MD Main Office [address] [place] [address] [place] [address] 06/28/2022 15:20:04 06/28/2022 17:06:16 Chest pain 02798809 R07.9 Due to presenting sx need to rule out PE, pt does not want to go to the ED, as an alternativ e he agrees to do STAT D dimer, other labs. If Ddimer positive will need to get CTA. if negative, treat for OAD. Short term followup . EKG sinus tach. Persistent cough 4353140 02 R05.3 flu negative, ? viral illness, check cxr (pt request). Workup to rule out PE for acute causes. If workup for PE, pneumonia and OAD negative, consider stopping ACEI as cause for cough. [id number] Selina moseley MD Main Office [address] [place] [address] [place] [address] 07/12/2022 15:19:58 07/12/2022 16:43:41 Cough 93100754 R05.9 Possible OAD and pulmonary not for months, will preet trial of ICS for a month, then stop and if cough resumes to call back. Make sure to rinse and gargle after inhaler. Albuterol prn. Consider stopping/c hanging ACEI if persistent . Kidney stone 03636958 N2 0.0 noted on lumbar xray, he is working on getting in to the urologist, has to pay his balance. Currently no acute sx. Will call if any stone pain or hematuria. Hydration [id number] Adan Farfan MD Main Office [address] [address] [place] [address] 07/29/2022 10:41:06 07/29/2022 11:54:51 Acute pharyngitis 460594129 J02.9 Exposure t o viral disease 2800551291 92386 Z20.828 negative flu and negative strep, his on was diagnosed with human metapneumo virus recently. Acute tonsillitis 007874 08 J03.90 negative flu and strep, will tx for tonsilliti s with augmentin BID x 10 days and medrol dose pack. hydration, rest, call/ return for worsening or concerns Influenza A virus present 4469669201 08 J09.X2 Cough 67522518 R05.9 use cough med as needed. [id number] Selina moseley MD Main Office [address] [address] [place] [address] 09/22/2022 15:43:21 09/22/2022 17:02:38 Essential hypertension 98130513 I10 BP is controlled on present regimen, continue all meds at current dosages. Continue with low salt diet, exercise, needs to work on wt loss Hyperglycemia 52988531 R 73.9 do labs and needs followup to review, hgba1c stable, continue wt loss, consider metformin in the future. Uric acid renal calculus 389593985 N20.0 follows with urology Body mass index 40+ - severely obese 261206667 E66.01 Z68.41 Needs to address weight, suggested portion control, more exercise. Consider bariatric appt if not able to lose by the next reg visit. [id number] Marley tate NP Main Office [address] [facility] [address] [facility] [place] [address] 12/29/2022 08:46:20 12/29/2022 10:00:38 Essential hypertension 06699770 I10 BP is not controlled on present regime n as he was out of med for while, but has now restarted. . Continue with low salt diet, exercise, needs to work on wt loss. Recent BMP ok, Encouraged walking Hyperglycemia 14794002 R 73.9 Prediabeti c, hgba1c stable, continue wt loss, consider metformin in the future. Uric acid renal calculus 261030013 N20.0 follows with urology, on allopurino l from nephrology , no changes , no sx today Body mass index 40+ - severely obese 407005752 E66.01 Z68.41 Needs to address weight, suggested portion control, more exercise. Consider bariatric appt if not able to lose by the next reg visit. Pt declines bariatric surgery options at this time. Will try to get wegovy approved for wt loss, [id number] Marley tate NP Main Office [address] [place] [address] 02/16/2023 15:41:46 02/18/2023 14:57:28 Essential hypertension 36449490 I10 increase amlodipine to 10 mg Generalize d anxiety disorder 71653491 F41.1 pt admits to this, suggested counseling and will explore medication treatment at next visit. Denies HI or SI, just life stressors, will look in to EAP program Body mass index 40+ - severely obese 112186517 Z68.43 Needs to address weight, suggested portion control, more exercise. Consider bariatric appt if not able to lose by the next reg visit. Pt declines bariatric surgery options at this time. Wt loss meds not covered by his plan Persistent cough 5487959 02 R05.3 I think he should have PFTs to determine if he has any asthma. Will order tests and followup with [facility]. [id number] Adan Farfan MD Main Office [address] [facility] [address] [facility] [place] [address] 03/18/2023 08:19:57 03/18/2023 09:06:22 Essential hypertension 73608981 I10 BP better controlled , continue medication for now. On HCTZ. Having swelling knee pain but will monitor for the next 2 weeks. Hyperglycemia 50160678 R 73.9 Prediabeti c, hgba1c stable, continue wt loss, consider metformin in the future. Uric acid renal calculus 125742728 N20.0 follows with urology, on allopurino l from nephrology , no changes , no sx today Cough 39212576 R05.9 use cough med as needed. PFTs done but no results, will request Low back pain 104399903 M54.50 Low back pain, was takign ibuprofen, was on med which helped him in the past but unsure of the name, he will send portal message in regards to this. [id number] Adan Farfan MD Main Office [address] [place] [address] 04/28/2023 08:21:20 04/28/2023 09:18:29 Adult health examination 820378219 Z00.00 Colon [employer] er screening declined 2891287679 9109 Z53.20 Essential hypertension 78230678 I10 BP better controlled , continue medication for now. On HCTZ. Having swelling knee pain but will monitor for the next 2 weeks. Moderate p ersistent asthma 741639309 J45.40 Uric acid renal calculus 529105839 N20.0 follows with urology, on allopurino l from nephrology , no changes , no sx today Hyperglycemia 18755613 R 73.9 Prediabeti c, hgba1c stable, continue wt loss, consider metformin in the future. Hyperlipidemia 22849931 E78.5 Low back pain 461391005 M54.50 Low back pain, was taking ibuprofen, was on med which helped him in the past but unsure of the name, he will send portal message in regards to this. Nocturia 720227035 R35.1 Body mass index 40+ - severely obese 052754208 E66.01 Z68.43 [id number] Adan Fafran MD Main Office [address] [facility] [address] [place] [address] 08/09/2023 14:35:17 08/09/2023 16:20:40 Acute pharyngitis 704142374 J02.9 Possible viral infection vs dysphagia from mild obstructio n. Dysphagia 83511649 R13.1 0 [id number] SURYA LUGO MD Main Office [address] [address] [place] [address] 11/16/2023 13:29:44 11/16/2023 14:09:07 Viral upper respiratory tract infection 245674278 J06.9 Recommend to take mucinex DM for cough and congestion , saline solution BID, rest , fluids. Call office if in 1 week still symptomati c with congestion new symptoms or worsening occur. Moderate p ersistent asthma 517623258 J45.40 continue current meds and rescue inhaler advised to use q 4-6 hrs. [id number] Adan Farfan MD Main Office [address] [place] [address] 12/15/2023 14:42:42 12/15/2023 15:34:06 Essential hypertension 14631902 I10 BP better controlled , continue medication for now. On HCTZ. Having swelling knee pain but will monitor for the next 2 weeks. Uric acid renal calculus 768089527 N20.0 follows with urology, on allopurino l from nephrology , no changes , no sx today Prediabetes 945551428 R7 3.03 [id number] Adan Farfan MD Main Office [address] [place] [address] 01/20/2024 13:15:08 01/20/2024 13:43:44 Sciatica 36411460 M54.32 hx of bilateral sciatica-r ecent flare up to the left side for the past x3-4 weeks-was evaluated at a walk in clinic and given muscle relaxants; provides minimal relief-pt also takes OTC tylenol prn-limite d ROM of the LLE secondary to pain-sharp , radiating pain from the left hip/low left back down to the knee/jimenez- will provide gabapentin and discussed conservati ve measuremen ts-pt declines PT due to cost, will provide handout of exercises- will refer to physiatry [id number] Adan Farfan MD Main Office [address] [address] [place] [address] 05/01/2024 15:13:50 05/01/2024 16:17:13 Adult health examination 768050657 Z00.00 HM due for labs. Essential hypertension 22472756 I10 has been taking wrong meds per patient and he has all his meds. Moderate p ersistent asthma 534421433 J45.40 continue inhalers as needed Uric acid renal calculus 654112089 N20.0 follows with urology- Dr Mullen, has stones, needs lithotrips y and possible surgery Hyperglycemia 35558460 R 73.9 Prediabeti c, hgba1c stable, continue wt loss, consider metformin in the future. Low back pain 683653211 M54.50 Low back pain, was taking ibuprofen, was on med which helped him in the past but unsure of the name, he will send portal message in regards to this. Nocturia 741992176 R35.1 Body mass index 40+ - severely obese 012709050 E66.01 Z68.43 Influenza vaccination declined 847114800 Z28.21 Screening for malignant neoplasm of colon 558353668 Z12.11 declines for now, he will call. [id number] Adan Farfan MD Main Office [address] [address] [place] [address] 08/09/2024 08:13:06 08/09/2024 09:38:32 Essential hypertension 96896565 I10 BP stable, continue current meds, just got refills. Influenza vaccination declined 106552743 Z28.21 Uric acid renal calculus 727311340 N20.0 follows with urology- Dr Mullen, has stones, needs lithotrips y and possible surgery in [id number] Adan Farfan MD Main Office [address] [address] [place] [address] 05/01/2025 11:04:28 05/01/2025 11:45:22 Urticaria 580791377 L50.9 99571 Unclear etiology. No breathing or swallowing problems. Mostly consists of an itchy rash. This does not appear to be a contact dermatitis . Health Concerns Section Related Observation LastModified by Organization Chel diaz LastModified Time None Recorded Concern Status LastModified by Organization Details LastModified Time None Recorded Advance Directives Directive None Recorded Payers Insurance Date Sequence Insurance Name Policy Number Policy Montes Covered Member ID Montes Member ID Guarantor Name 03/17/2022 2 [employer] (POS) Sheldon Pineda [id number] Sheldon Yan 05/15/2025 1 [facility] (PPO) [id number] Sheldon Yan [id number] Sheldon Yan 04/21/2022 1 [facility] Sheldon Pineda [id number] Sheldon Yan Notes Date Note Type Note Provider Name and Address Organization Details Recorded Time 12/15/2023 text/html Generic HPI TemplateReported by PatientPresents for f/u HTN.Was sick end of October, was upset after UV here as he felt he was wheezing and sinusitis. Ended up on prednsione and sx got better. Cough is resolved. No headaches, dizziness, SOB, palpitations, is taking BP meds regularly as scheduled. Does not check BP at home. BIJAL San [address] [facility] [address], [place], [address], [facility] 12/15/2023 15:32:12 01/20/2024 text/html ROS as noted in the HPI Sheldon is a 58yr old M who presents for left sided low back pain and LLE pain. Hx of bilateral sciatica. Reports for the past month of having a flare up of his sciatica. Was seen at a walk in clinic about 4 weeks ago and given muscle relaxant- reports providing minimal relief. Has difficulty with ROM due to the pain. Has been resting and taking OTC tylenol for relief. Denies of any changes in bowel/urinary habits, saddle anesthesia, or numbness/tingling sensation. BO ZUNIGA [address] [facility] [address], [place], [address], [facility] 01/20/2024 13:56:47 05/01/2024 text/html Generic HPI TemplateReported by PatientPresents for PE. Being seen for back pain/ sciatic and seeing someone for knees. Has some arthritis, disc issues.options injection or PT- he is undecided. he did have cortisone both knees- and it did help. Has lost weight since last visit- more active since getting cortisone shots.he notes he was at 335lbs recently. BP is high today, he feels he may be confusing his medshe thinks he is taking allopurinol instead of BP med. BIJAL San [address], [address], [facility] 05/01/2024 16:24:03 08/09/2024 text/html Generic HPI TemplateReported by PatientPresents for BP follow-up.possibly having surgery right kidney stones, large stone.Taking all BP meds as directed and BP is better, no side effects and no concerns. No headaches, dizziness, palpitations. Will be getting cortisone both knees, not taking gabapentin as it does not help, dr singh Using inhalers as needed, no current SOB or wheezing. Mariaelena Lee, BIJAL [address], [address], [facility] 08/09/2024 10:48:45 05/01/2025 text/html ROS as noted in the HPI He started having an itchy rash 4 days ago. It started after working in the yard and has persisted. The rash involves mostly his back and chest and the lesions can come and go. He has been taking benadryl which hasn't been helping much with the itch. He denies trouble breathing or swallowing. No other family members are involved. He denies new meds, detergents, foods or soap. Adan Farfan MD [address] [address], [place], [address], [facility] 05/01/2025 12:03:30
--- OUTSIDE RECORDS SUMMARY | 2025-07-05 09:00 | XMS_ITS | Data Portability ---
Author Organization [employer], [address] Address [address] [place] [address] Assessment No assessment recorded. Plan of Treatment Reminders Order Date Submit Date Provider Last Modified By Organization Details Last Modified Time Details Appointments None recorded. Lab None recorded. Referral None recorded. Procedures None recorded. Surgeries None recorded. Imaging None recorded. Medication Orders albuterol sulfate 2.5 mg/3 mL (0.083 %) solution for nebulizatio n [address] [id number], [address], [place], [id number], 3 13:15:19 ipratropium bromide 0.02 % solution for inhalation [address] [id number], [address], [place], [id number], 3 13:15:19 prednisone 20 mg tablet 2022 023 [facility][id number], [address], [place], [id number], 3 13:15:28 albuterol sulfate HFA 90 mcg/actuati on aerosol inhaler 2022 023 [facility]09057, [address], [place], [id number], 3 13:15:28 benzonatate 200 mg capsule 2022 023 [id number], [address], [place], [id number], 13:15:27 Allergy Relief (fluticason e) 50 mcg/actuati on nasal spray,suspe nsion 2022 023 [facility], [address], [place], [id number], 13:15:29 Patient TargetsNo targets recorded. Patient Instructions Encounter Date Encounter Id Patient Instructions Last Modified By Organization Details Last Modified Time 01/10/2023 [id number] cough: care instructions [email or web address] Not available 01/10/2023 12:49:15 wheezing or bronchoconstrictio n: care instructions Not available 01/10/2023 12:49:15 peak flow* DESTIN Not available 01/10 19:01:02 Patient instruct ed on worsening signs and symptoms that would require further evaluation by ED or PCP such as fever of 101.0 or greater, congestion accompanied with coughing, vomiting, diarrhea, abdominal pain, decreased oral intake, lethargy, or other new symptom(s) experienced not discussed during this visit. Use humidifier and ensure good hydration. If you experience new concerning symptoms, shortness of breath, respiratory distress, or chest pain go to the ER. Use the medications prescribed. May use Decongestants if tolerated and no history of elevated blood pressure or Diabetes. Use saline nasal saline and Flonase daily for1 week. You may use tylenol for pain/fever. Do not take prednisone with Ibuprofen. Get some extra rest. When should you call for help? Call anytime you think you may need emergency care. For example, call if: You have severe trouble breathing. Call your doctor now or seek immediate medical care if: You have new or worse trouble breathing. You cough up dark brown or bloody mucus (sputum). You have a new or higher fever. You have a new rash. Watch closely for changes in your health, and be sure to contact your doctor if: You cough more deeply or more often, especially if you notice more mucus or a change in the color of your mucus. You are not getting better as expected. Not available 01/10/2023 12:47:58 Reason for Referral None Reported. Results Created Date Observation Date Name Description Value Unit Range Abnormal Flag Note LastModifiedBy Organization Detail LastModifiedTime Result Notes None recorded. Problems Name Problem SNOMED Code Status Onset Date Resolution Date Notes Provider Name and Address Organization Details Recorded Time Hypertensive disorder 98010771 Active 2022 CELESTE CHATMAN null, [place] - [facility] 3 12:26:41 Kidney stone 99412907 Active 2022 CELESTE CHATMAN null, PA - [facility] 3 12:26:50 Obese 143114337 Active 2022 CELESTE CHATMAN null, [place] - [facility] 12:27:32 Problem Notes None recorded. Procedures Surgical History Date Name Laterality Status Provider Name and Address Organization Details Recorded Time 01/11/20 Nebulizer Treatment completed CELESTE CHATMAN PA - [facility] 01/10/2023 13:38:10 extracorporeal shockwave lithotripsy of calculus of kidney completed CELESTE CHATMAN PA - [facility] 01/10/2023 12:29:55 Finger tendon transfer completed CELESTEGENEVIEVE CHATMAN PA - [facility] 01/10/2023 12:30:22 Imaging Results None recorded. Procedure Notes None recorded. Medical Equipment None Reported. Medications Name Sig Start Date Stop Date Status Note LastModified by Organization Details LastModified Time cyclobenzap rine 10 mg tablet TAKE 1 TABLET BY MOUTH THREE TIMES DAILY FOR 7 DAYS. MAY CAUSE DROWSINES S 01/10 completed Not Available Not Available Not Available promethazin e-DM 6.25 mg-15 mg/5 mL oral syrup TAKE 5 ML BY MOUTH EVERY 4 HOURS FOR 7 DAYS DIRECTED 01/10 completed Not Available Not Available Not Available prednisone 10 mg tablet active Not Available Not Available Not Available albuterol sulfate 2.5 mg/3 mL (0.083 %) solution for nebulizatio n Inhale 2.5 mg by nebulizat ion route as directed for 1 day. 2022 active Not Available Not Available Not Avai lable benzonatate 200 mg capsule Take 1 capsule 3 times a day by oral route as needed for 7 days. 2022 active Not Available Not Available Not Avai lable prednisone 20 mg tablet Take 2 tablets every day by oral route in the morning for 3 days. 2022 active Not Available Not Available Not Avai lable amlodipine 5 mg tablet TAKE 1 TABLET BY MOUTH EVERY DAY active Not Available Not Available No t Available allopurinol 300 mg tablet TAKE 1 TABLET BY MOUTH EVERY DAY active Not Available Not Available No t Available hydrochloro thiazide 25 mg tablet TAKE 1 TABLET BY MOUTH EVERY DAY active Not Available Not Available No t Available methylpredn isolone 4 mg tablets in a dose pack FOLLOW PACKAGE DIRECTION S active Not Available Not Available No t Available albuterol sulfate HFA 90 mcg/actuati on aerosol inhaler Inhale 2 puffs every 4-6 hours by inhalatio n route as needed for 10 days. 2022 active Not Available Not Available Not Avai lable lisinopril 40 mg tablet TAKE 1 TABLET BY MOUTH EVERY DAY active Not Available Not Available No t Available doxycycline hyclate 100 mg tablet TAKE 1 TABLET BY MOUTH TWICE DAILY FOR 7 DAYS 01/10 completed Not Available Not Available Not Available ipratropium bromide 0.02 % solution for inhalation Inhale 0.5 mg by inhalatio n route as directed for 1 day. 2022 active Not Available Not Available Not Avai lable amoxicillin 875 mg-potassiu m clavulanate 125 mg tablet TAKE 1 TABLET BY MOUTH EVERY 12 HOURS FOR 10 DAYS DIRECTED 01/10 completed Not Available Not Available Not Available cyclobenzap rine 5 mg tablet TAKE 1 TABLET BY MOUTH THREE TIMES DAILY NEEDED FOR MUSCLE SPASM 01/10 completed Not Available Not Available Not Available Allergy Relief (fluticason e) 50 mcg/actuati on nasal spray,suspe nsion [place] 1 spray every day by intranasa l route as directed for 30 days. 2022 active Not Available Not Available Not Avai lable Vitals Date Recorded Body height Respiratory rate Pain severity - 0-10 verbal numeric rating [Score] - Reported Heart rate Body temperature Oxygen saturation Oxygen saturation in Arterial blood by Pulse oximetry Systolic And Diastolic Provider Name and Address Organization Details Last Updated DateTime 170.18 cm 20 /min 5 115 /min 98.1 [degF] 98 % 98 % 135/85 mm[Hg] CELESTE CHATMAN PA - [facility] 12:32:09 Social History Question Answer Notes LastModified by Organizat ion Details LastModified Time Tobacco Smoking Status Current Some Day Smoker CELESTE CHATMAN null, [place] - [facility] 01/10/2023 12:29:28 What Is Your Water Source? City Information not available 01/10/2023 What Is Your Heat Source? Electric Information not available 01/10/2023 Have You Recently Traveled Abroad? No Information not available 01/10/2023 Are You Currently In School? No Information not available 01/10/2023 Sex: Unknown Functional Status Question Answer Note LastModified by Organizat ion Details LastModified Time Do you use any illicit or recreational drugs? No Information not available 01/10/2023 What is your level of alcohol consumption? Occasional Information not available 01/10/2023 Are you currently employed? Yes Information not available 01/10/2023 Mental Status None recorded. Family History Relationship Description Onset Age of this Age Resolved Age Notes LastModified by Organization Details LastModified Time Mother Diabetes mellitus [email or web address] Not available 01/10 12:28:27 Father Alcoholism [email or web address] Not avail able 01/10/2023 12:28:41 Medical History No medical history recorded. Past Encounters Encounter ID Performer Location Encounter Start Date Encounter Closed Date Diagnosis/Indication Diagnosis SNOMED-CT Code Diagnosis ICD10 Code Diagnosis IMO Codes Diagnosis [place] [id number] [place] [address] [place] [address] 01/10/2023 11:16:50 01/10/2023 13:17:32 Acute bronchitis 16885319 J20.9 Health Concerns Section Related Observation LastModified by Organization Detai ls LastModified Time None Recorded Concern Status LastModified by Organization Details LastModified Time None Recorded Advance Directives Directive None Recorded Payers Insurance Date Sequence Insurance Name Policy Number Policy Montes Covered Member ID Montes Member ID Guarantor Name 01/31/2023 1 [facility] [facility] [id number] Reuben Yan [id number] Reuben Yan 02/01/2023 1 [facility] OPTIONS ([id number]) [id number] Reuben Yan [id number] Reuben Yan Notes Date Note Type Note Provider Name and Address Organization Details Recorded Time 3 text/html Sinus Complaints UCReported by PatientHPIFor location, patient reportssinus pain,facial pain, andsinus pressure. For associated symptoms, patient reportsdifficulty breathing,post nasal drip,nasal passage blockage __, andcoughbut reportsno fever,no nausea or vomiting,no sore throat,no ear fullness,no nasal itching,no eye itching, andno dizziness. For quality, patient reportsworseningbut reportsminimal discomfortandclear. For context, patient reportsworse with environmental exposurebut reportsno recent upper respiratory infection,no recent sick contacts, andnot worse with seasonal allergen exposure. For onset/timing, patient reportsworse in amandworse in pm. For duration, patient reportsfrequent. For severity, patient reportsmoderate. For risk factors, patient reportsno current smoking or tobacco useandno history of nasal trauma. For alleviating factors, patient reportsoral steroids. For aggravating factors, patient reportsworse during an upper respiratory infection (a cold)andworse with excess fatigue. For prior treatment, patient reportsoral decongestant. Shortness of BreathReported by Patient AsthmaReported by Patient CoughReported by Patient Benoit Cortes NP [address] [place], [address], [place] - [facility] 01/28/2023 08:26:25
--- OUTSIDE RECORDS SUMMARY | 2025-07-05 09:00 | XMS_ITS | Clinical Summary ---
Author Organization [facility]ly [facility] Address [address] [place] [address] Care Team Providers Care Screen Tender Helper Name Role Phone Unknown Primary Care Provider [phone] Allergies Active Allergy Reactions Criticality Noted Date Comments Levofloxacin Anaphylaxis High 06/11/2022 Medications lisinopril (PRINIVIL,ZeSTR IL) 40 MG tablet Take 40 mg by mouth daily. Active amLODIPine (NORVASC) 5 MG tablet Take 5 mg by mouth daily. Active allopurinol (ZYLOPRIM) 300 MG tablet Take 300 mg by mouth daily. Active dicyclomine (BENTYL) 10 MG capsuleIndicati ons:Abdominal cramping Take 1 capsule (10 mg total) by mouth 3 (three) times a day as needed for cramping. 10 capsule 01/07/2025 Active Active Problems No known active problems Social History Tobacco Use Types Packs/Day Years Used Date Smoking Tobacco: Never Assessed Sex and Gender Information Value Date Recorded Sex Assigned at Not on file Legal Sex Male 9:42 AM EDT Gender Identity Not on file Sexual Orientation Not on file Last Filed Vital Signs Vital Sign Reading Time Taken Comments Blood Pressure 156/102 01/07/2025 12:34 PM EDT Pulse 98 01/07/2025 12:34 PM EDT Temperature 36.4 C (97.6 F) 01/07/2025 12:34 PM EDT Respiratory Rate 12 12/31/2024 9:43 AM EDT Oxygen Saturation 98% 01/07/2025 12:34 PM EDT Inhaled Oxygen Concentration - - Weight 150 kg (330 lb) 12/31/2024 9:43 AM EDT Height 170.2 cm (5' 7 ) 12/31/2024 9:43 AM EDT Body Mass Index 51.69 12/31/2024 9:43 AM EDT Plan of Treatment Health Maintenance Due Date Last Done Comments Hepatitis C Virus Screening 1967 HIV Screening 1980 DTaP/Tdap/Td Vaccines (1 - Tdap) 1986 Hepatitis B Vaccines (1 of 3 - 19+ 3-dose series) 1986 Colonoscopy 2012 Pneumococcal Vaccines 50+ (1 of 1 - PCV) 2017 RSV Vaccine 50 years and old er and Patients (1 - Risk 50-74 years 1-dose series) 2017 Zoster (Shingles) Vaccine (1 of 2) 2017 Influenza Vaccine 03/22/2025 COVID-19 Vaccine (3 - 2024- season) 2025, 03/24/2021 Insurance [facility] Care Teams Screen Tender Helper Relationship Specialty Start Date End Date Unknown Unknow Provider Address PCP - General 06/11/22
== END 2025-07-05 09:08 | disposition home or self-care (01) ==
LOC: HO.HPHYS 08:43
PROVIDERS: PCP Registered Nurse; Visit Provider Physician Assistant
DX: M17.0 Bilateral primary osteoarthritis of knee (principal)
CPT/HCPCS: 20610

== ENCOUNTER → 2025-07-05 08:43 | Outpatient (BNVA) | payer OTHER, SELFPAY | PROVIDERS: PCP Registered Nurse; Visit Provider Physician Assistant | DX: M17.0 Bilateral primary osteoarthritis of knee (principal) | CPT/HCPCS: 20610; J2003; J3301 ==